=== PATIENT | female | born 1935 | race Caucasian/White ===

== ENCOUNTER 2016-09-02 13:31 | Emergency (ER) | payer MEDICARE, BC ==
[2016-09-02 14:02] VITALS: BP 174/63
[2016-09-02] MEDS ORDERED: Fluorescein Sodium TOPICAL* 1 MG TEST OPHTHALMIC ONE (15:20)
--- NOTE | 2016-09-02 15:20 | UC ---
General HPI - HPI Summary HPI Summary: patient fell while leaning over to get something out of a drawer, she hit her right elbow, mild abraisons noted. She was unable to get up, crawled to the next room and attempted to pull her self up and hit her nose on the walker she thinks. Denies LOC. cannot relay alot of details about the situation. She is complaining of a FB sensation in the right eye. Hx of bilateral macular degeneration and glaucoma, has had surgical blebs in both eyes. - History of Current Complaint Chief Complaint: UCLowerExtremity Stated Complaint: FELL YESTERDAY Time Seen by Provider: 09/02/16 14:30 Hx Obtained From: Patient Onset/Duration: Sudden Onset, Lasting Days Timing: Constant Onset Severity: Moderate Current Severity: Moderate - Allergy/Home Medications Allergies/Adverse Reactions: Allergies Allergy/AdvReac Type Severity Reaction Status Date / Time Beta Adrenergic Blockers Allergy See Comment Verified 09/02/16 14:03 Home Medications: Home Medications Bimatoprost 0.01% OPHTH (NF) [Lumigan 0.01% OPHTH (NF)] 1 drop BOTH EYES QPM 10/14 [History Confirmed 09/02/16] Brimonidine P 0.15%(NF) [Alphagan P 0.15%(NF)] 1 drop LEFT EYE TID 09/02/16 [ History Confirmed 09/02/16] Brinzolamide 1% OPHTH [place](NF) [Azopt 1% OPHTH [place](NF)] 1 drop BOTH EYES TID 10/14 [History Confirmed 09/02/16] Lisinopril [Zestril 10 MG-] 10 mg PO DAILY 09/02/16 [History Confirmed 09/02/16] PMH/Surg Hx/FS Hx/Imm Hx Previously Healthy: Yes Cardiovascular History Of: Reports: Hypertension - Surgical History Surgical History: Yes Surgery Procedure, Year, and Place: bunionectomy - Family History Known Family History: Positive: Hypertension - Social History Alcohol Use: Rare Substance Use Type: None Smoking Status (MU): Never Smoked Tobacco Review of Systems Constitutional: Negative Skin: Other - abrasion Eyes: Other - FB sensation ENT: Negative Respiratory: Negative Cardiovascular: Negative Gastrointestinal: Negative Genitourinary: Negative Motor: Negative Neurovascular: Negative Musculoskeletal: Arthralgia, Myalgia Neurological: Negative Psychological: Negative All Other Systems Reviewed And Are Negative: Yes Physical Exam Triage Information Reviewed: Yes Appearance: Well-Nourished, Ill-Appearing, Pain Distress Vital Signs: Initial Vital Signs Temp 98.2 F 09/02/16 13:56 Pulse 77 09/02/16 13:56 Resp 18 09/02/16 13:56 BP 174/63 09/02/16 13:56 Pulse Ox 98 09/02/16 13:56 Vital Signs Reviewed: Yes Eye Exam: Normal Eyes: Positive: Conjunctiva Inflamed, Other: - small dilation noted in both eyes , hx of cataract surgery, EOMI, pressure feels equal in bothe eyes with palpabtion. small abrasion noted in upper sclera, there appears to be an ulceration of the bleb where it attaches to the iris ENT Exam: Normal ENT: Positive: Hearing grossly normal, Pharynx normal, TMs normal Dental Exam: Normal Neck exam: Normal Respiratory Exam: Normal Respiratory: Positive: Chest non-tender, Lungs clear, Normal breath sounds Cardiovascular Exam: Normal Cardiovascular: Positive: RRR, No Murmur, Pulses Normal Abdominal Exam: Normal Abdomen Description: Positive: Nontender, No Organomegaly, Soft Bowel Sounds: Positive: Present Musculoskeletal Exam: Normal Musculoskeletal: Positive: Strength Intact, ROM Intact, No Edema Neurological Exam: Normal Neurological: Positive: Alert, Muscle Tone Normal Psychological Exam: Normal Psychological: Positive: Normal Response To Family, Age Appropriate Behavior Skin: Positive: Other - small superficial abraision on the right elbow Course/Dx - Course Course Of Treatment: hx obtained, exam performed, meds reviewed, mild ankle sprain, no swelling. abraision cleaned and dressed. Eye doctor consulted due to eye pain and significant eye history, fluroscene exam performed, small uptake noted in the medial upper area of left eye. Dr [facility] and he recommended [place] and follow up on Sunday. - Differential Dx - Multi-Symptom Provider Diagnoses: left eye pain. right ankle sprain. abrasion Discharge - Discharge Plan Condition: Stable Disposition: HOME Patient Education Materials: Eye Pain (ED), Ankle Sprain (ED) Additional Instructions: 1. Rest and ice the ankle as needed for pain. 2. Use the Drops 4 times a day until you follow up with your Eye surgeon.
[2016-09-02] MEDS ORDERED: Fluorescein Sodium TOPICAL* 1 MG TEST ONE (15:21)
== END 2016-09-02 15:48 | disposition home or self-care (01) ==
LOC: UCEAST 13:31
DX: S93.401A Sprain of unspecified ligament of right ankle, initial encounter (principal); S50.311A Abrasion of right elbow, initial encounter; W18.39XA Other fall on same level, initial encounter; H35.30 Unspecified macular degeneration; H40.9 Unspecified glaucoma; I10 Essential (primary) hypertension; H57.12 Ocular pain, left eye
CPT/HCPCS: 99202; A9270-GY; G0463